=== PATIENT | male | born 1985 | race African-American/Black ===

== ENCOUNTER 2017-08-02 11:23 | Emergency (ER) | payer SELFPAY ==
[~2017-08-02] VITALS: Ht 172.7 cm; Wt 65.0 kg
[2017-08-02] MEDS ORDERED: ONDANSETRON HCL 4MG/2ML VIAL IV STA ×2 (11:28→13:57)
[2017-08-02] MEDS ORDERED: SODIUM CHLORIDE 0.9% 1,000 ML IV ONE ×2 (11:28→13:57)
[2017-08-02] MEDS ORDERED: MORPHINE SULFATE 4 MG/ML CPJ (NOT FOR IM USE) IV STA ×2 (11:28→13:57)
[2017-08-02 11:58] LABS: HEMATOCRIT. 43.4 % (42.0-52.0); HEMOGLOBIN. 14.7 g/dL (14.0-18.0); MEAN CORPUSCULAR HEMOGLOBIN 29.6 pg (28.0-32.0); MEAN CORPUSCULAR VOLUME 87.3 fL (80.0-94.0); PLATELET 177 x1000/uL (130-400); RED BLOOD CELL COUNT 4.97 mill/uL (4.7-6.1); RED CELL DISTRIBUTION WIDTH 14.1 % (11.6-14.6)
[2017-08-02 12:02] LABS: INR 1.2; PROTHROMBIN TIME 12.1 sec (9.4-11.6)
[2017-08-02 12:15] LABS: CHLORIDE 103 mEq/L (98-107)
[2017-08-02 12:24] LABS: CLARITY URINE CLEAR (CLEAR); COLOR URINE YELLOW (YELLOW); KETONES URINE NEGATIVE (NEGATIVE); LEUKOCYTE ESTERASE URINE NEGATIVE (NEGATIVE); NITRITE URINE NEGATIVE (NEGATIVE); OCCULT BLOOD URINE NEGATIVE (NEGATIVE); PROTEIN URINE NEGATIVE (NEGATIVE); SPECIFIC GRAVITY URINE 1.022 (1.005-1.030); UROBILINOGEN URINE 0.2 E.U./dL (0.2-1.0)
[2017-08-02] MEDS ORDERED: LORAZEPAM 1MG TABLET PO ONE (13:00)
[2017-08-02 13:11] LABS: PLATELET ESTIMATE NORMAL
[2017-08-02 15:49] VITALS: BP 134/80
== END 2017-08-02 15:55 | disposition home or self-care (01) ==
LOC: ER 11:23
DX: N44.00 Torsion of testis, unspecified (principal); N43.3 Hydrocele, unspecified; N50.82 Scrotal pain
CPT/HCPCS: 36415; 74176; 76870; 76998; 80053; 81003; 83690; 85025; 85610; 93976; 96361; 96374; 96375; 96376; 99285; J2270; J2405; J7030